=== PATIENT | male | born 1955 | race Caucasian/White ===

== ENCOUNTER → 2018-03-12 | Outpatient (REF) | payer OTHER ==
[~2018-03-12] MED LIST: ATR80PT PO; CHOL100062 PO; HYDR12.556 PO; OSE75 PO; TAMO10TA PO
== END ==
LOC: ZZSENDIN 13:24
PROVIDERS: ATTEND Ophthalmology
DX: C44.1022 Unspecified malignant neoplasm of skin of right lower eyelid, including canthus (principal)
CPT/HCPCS: 88305